=== PATIENT | female | born 1985 | race Caucasian/White ===

== ENCOUNTER 2017-03-09 12:47 | Day surgery (SDC) | payer OTHER ==
[2017-03-05 15:28] VITALS: BMI 36.1
[~2017-03-09 12:47] MED LIST: DEXAMETHASONE SOD PHOSPHATE 10 MG/ML 1 ML VIAL IV ONE; HYDROmorphone 1 MG/ML 1 ML SYRINGE IVP PRN; LACTATED RINGERS 1,000 ML IV SCH; MIDAZOLAM 2 MG/2 ML VIAL IV PRN; ONDANSETRON 4 MG/2 ML VIAL IVP ONE; Pre Op ABX Message 1 EACH MISC MISCELLANE ONE; SCOPOLAMINE 1.5MG/72HR PATCH TRANSDERM ONE
[2017-03-09 13:24] VITALS: TEMP 97.8
[2017-03-09] MEDS ORDERED: LIDOCAINE 1% 20 ML VIAL (10MG/ML) FOR IV START INTRADERMA ONE (13:25)
[2017-03-09] MEDS ORDERED: LIDOCAINE 2% INJ 20 MG/ML SQ ONE ×2 (13:40→13:51)
[2017-03-09] MEDS ORDERED: BUPIVACAINE (PF) 0.5% 30 ML VIAL SQ ONE ×2 (13:40→13:51)
[2017-03-09] MEDS ORDERED: LIDOCAINE 1% INJ 10MG/ML (20 ML MDV) ONE (13:45)
[2017-03-09] MEDS ORDERED: fentaNYL (PF) 50 MCG/ML 2 ML AMP ONE (13:45)
[2017-03-09] MEDS ORDERED: MIDAZOLAM 2 MG/2 ML VIAL ONE (13:45)
[2017-03-09] MEDS ORDERED: PROPOFOL 10 MG/ML 20 ML VIAL IV ONE (13:45)
[2017-03-09 14:25] VITALS: RESP 16
[2017-03-09 14:27] VITALS: BP 103/71; PULSE 78
--- NOTE | 2017-03-10 10:50 | OP ---
DATE OF SERVICE: 03/09/2017 SURGEON: CEDRIC VU DO BUSINESS SERVICES ADMINISTRATOR: PREOPERATIVE DIAGNOSIS: Left cubital tunnel syndrome. POSTOPERATIVE DIAGNOSIS: Left cubital tunnel syndrome. OPERATION: Cubital tunnel release. ANESTHESIA: ESTIMATED BLOOD LOSS: SPECIMENS REMOVED: COMPLICATIONS: OPERATIVE FINDINGS: DESCRIPTION OF PROCEDURE: The patient is taken to the operative suite where an anesthetic was administered by the department of anesthesia with good result. The arm was then prepped and draped in the usual manner. A longitudinal incision was made, somewhat posteriorly near the olecranon. Dissection was then taken through the skin and subcutaneous tissue with blunt dissection then performed to protect any posterior branches of the medial antebrachial cutaneous nerve of the arm. The ulnar nerve was then visualized in the retrocondylar groove and was traced in both the proximal and distal directions. Care was taken to ensure all potential sites of nerve entrapment were decompressed including the arcade of [place], the medial intermuscular septums, the retrocondylar groove, decubital tunnel and the flexor aponeurosis distally. Care was taken to avoid dissecting the ulnar nerve from its vascular supply. At the completion of the procedure, the elbow was placed in flexion and there is no sign of subluxation. The wound was then irrigated and the skin was closed with running 5-0 nylon suture. Marcaine was injected for long acting anesthetic. A soft bulky dressing was applied and the patient taken to the recovery room in satisfactory condition.
== END 2017-03-09 14:57 | disposition home or self-care (01) ==
LOC: OR 12:47
PROVIDERS: ATTEND Orthopaedic Surgery Hand Surgery
DX: G56.22 Lesion of ulnar nerve, left upper limb (principal); M79.7 Fibromyalgia; Z79.1 Long term (current) use of non-steroidal anti-inflammatories (NSAID); Z79.891 Long term (current) use of opiate analgesic; Z79.899 Other long term (current) drug therapy; Z88.1 Allergy status to other antibiotic agents; Z88.8 Allergy status to other drugs, medicaments and biological substances
CPT/HCPCS: 81025; 64718; J2001 ×2; J2250; J1100; J2405; J3010; J2704

== ENCOUNTER → 2017-03-16 | Outpatient (CLI) | payer OTHER ==
--- NOTE | 2017-03-16 22:50 | MR ---
EXAMINATION TYPE: MR lumbar spine wo con DATE OF EXAM: 03/16/2017 10:01 PM COMPARISON: 05/05/2014 HISTORY: 31-year-old female with low back pain, right lower extremity radiculopathy, prior surgery 20 12. TECHNIQUE: Multiplanar, multisequence images of the lumbar spine were acquired. The patient was in to o much pain to proceed with the contrast portion of the exam. FINDINGS: Vertebral body heights are preserved and alignment is maintained. There is progressive moderate to severe disc space narrowing at L5-S1 with disc bulge and mixed Modic type II and type III endplate change at this level. There is progressive moderate disc interspace narrowing at L4-L5 and additional early desiccation thr oughout the lumbar spine. Similar moderate disc height loss at L1-L2 and bulging disc though also wit h progressive disc desiccation. No suspicious bone marrow placement. Conus medullaris is normal. At T12-L1, no significant canal or foraminal stenosis. At L1-L2, diffuse disc bulge with mild ventral impression on the thecal sac but no significant canal or foraminal stenosis. At L2-L3, no significant canal or foraminal stenosis. At L3-L4, very mild facet degenerative change without significant canal or foraminal stenosis. At L4-L5, there is mild diffuse disc bulge with ligamentum flavum thickening and prominent dorsal epi dural fat and mild facet degenerative change. Disc bulge centrally in the right paracentral location has increased from prior. There is minimal inferior foraminal narrowing on both sides, increased from prior. No spinal canal stenosis. At L5-S1, there is either persistent or recurrent right paracentral disc extrusion with some superior migration of disc material. This likely impinges the traversing right S1 nerve root and likely abuts the traversing right S2 nerve root as well. There is continued mild right neuroforaminal stenosis wi th disc material probably abutting the exiting right L5 nerve root. Similar moderate left neuroforami nal stenosis without spinal canal stenosis. No prevertebral or paravertebral soft tissue abnormality. IMPRESSION: 1. Moderate to advanced chronic disc/endplate degenerative change at L5-S1 shows interval progression from 2013. Mild early degenerative disc disease has progressed at additional levels in the lumbar sp ine as well. Scattered mild facet arthropathy and ligamentum flavum thickening is relatively similar. 2. There is either persistent or recurrent right paracentral disc extrusion with some superior migrat ion of disc material at L5-S1. This abuts the exiting right L5 nerve root, impinges the traversing ri ght S1 nerve root, and abuts the traversing right S2 nerve root. Similar moderate left neural foramin al stenosis at this level. 3. Minimal bilateral inferior neuroforaminal narrowing at L4-L5 has increased. 4. No canal compromise. 5. Note that IV contrast was not administered as the patient was in too much pain to complete the exa m.
== END | disposition home or self-care (01) ==
LOC: RADMRIMAIN 21:22
PROVIDERS: ATTEND Neurological Surgery
DX: M51.36 Other intervertebral disc degeneration, lumbar region (principal); M46.96 Unspecified inflammatory spondylopathy, lumbar region; M51.27 Other intervertebral disc displacement, lumbosacral region; M48.07 Spinal stenosis, lumbosacral region; S33.30XA Dislocation of unspecified parts of lumbar spine and pelvis, initial encounter
CPT/HCPCS: 72148

== ENCOUNTER → 2017-06-15 | Outpatient (CLI) | payer OTHER ==
--- NOTE | 2017-06-15 14:22 | XR ---
EXAMINATION TYPE: XR chest 2V DATE OF EXAM: 06/15/2017 COMPARISON: NONE HISTORY: Chest pain TECHNIQUE: Frontal and lateral views of the chest are obtained. FINDINGS: There is no focal air space opacity. No evidence for pneumothorax. No pleural effusion. The cardiac silhouette size is within normal limits. The osseous structures are grossly intact. Scoliotic curvature seen convex to the right. IMPRESSION: 1. No acute cardiopulmonary process.
== END ==
LOC: RADXRMAIN 14:01
PROVIDERS: ATTEND Family Medicine
DX: R06.02 Shortness of breath (principal)
CPT/HCPCS: 71020

== ENCOUNTER → 2017-10-21 | Outpatient (CLI) | payer OTHER ==
--- NOTE | 2017-10-21 23:14 | MR ---
EXAMINATION TYPE: MR brain wo/w con DATE OF EXAM: 10/21/2017 COMPARISON: NONE HISTORY: Body tremors, difficulty talking, headaches TECHNIQUE: Multiplanar, multisequence images of the brain and brainstem is performed without and with IV contras t, utilizing 10 mL intravenous Gadavist . FINDINGS: The ventricles have normal size. There is no mass effect nor midline shift. There is no sig n of intracranial hemorrhage. Lovelace-white matter structures have fairly normal signal pattern. There i s no evidence of cerebral edema. Brainstem appears normal. Corpus callosum is normal. Sella turcica a ppears normal. There is normal contrast opacification of the venous sinuses. There is no pathologic e nhancement. Pituitary stalk appears normal. Corpus callosum appears normal. IMPRESSION: Normal MR scan of the brain.
== END | disposition home or self-care (01) ==
LOC: RADMRIMAIN 16:55
PROVIDERS: ATTEND Family Medicine
DX: R47.9 Unspecified speech disturbances (principal)
CPT/HCPCS: 70553; A9581

== ENCOUNTER → 2018-03-18 | Outpatient (CLI) | payer OTHER ==
--- NOTE | 2018-03-19 06:52 | XR ---
EXAMINATION TYPE: XR chest 2V DATE OF EXAM: 03/18/2018 COMPARISON: Chest x-ray from June 15, 2017. HISTORY: Presurgical clearance. TECHNIQUE: Frontal and lateral views of the chest are obtained. FINDINGS: There is no focal air space opacity, pleural effusion, or pneumothorax seen. The cardiac silhouette size is within normal limits. Slight scoliotic curvature is redemonstrated. Cholecystectom y clips are noted on lateral view. IMPRESSION: No acute cardiopulmonary process. No significant change from prior.
== END | disposition home or self-care (01) ==
LOC: RADXRMAIN 17:08
PROVIDERS: ATTEND Neurological Surgery
DX: M50.00 Cervical disc disorder with myelopathy, unspecified cervical region (principal)
CPT/HCPCS: 71046

== ENCOUNTER 2018-07-03 11:43 | Emergency (ER) | payer OTHER ==
--- NOTE | 2018-07-03 12:22 | ED ---
General Adult HPI - General Chief complaint: Psychiatric Symptoms Stated complaint: Chest pain Time Seen by Provider: 07/03/18 11:45 Source: patient, RN notes reviewed, old records reviewed Mode of arrival: EMS Limitations: no limitations - History of Present Illness Initial comments: 33-year-old female presenting for evaluation of depression, anxiety, and suicidal ideation. Patient states that her recently lost his job, she has been dealing with a [employer] with shot off notices, she has a daughter who is having some psychiatric issues and she herself is been dealing with multiple chronic pain issues. She denies suicide attempt. She does have suicidal ideation. She is tearful during exam. She did complain to EMS of some upper left-sided chest pain which she attributed to her anxiety. She's had some nausea and restlessness. She states she has not slept in the past several days secondary to her anxiety. - Related Data Home Medications Medication Instructions Recorded Confirmed Pregabalin [Lyrica] 200 mg PO BID 03/29/15 07/03/18 Albuterol Inhaler [Ventolin Hfa 2 puff INHALATION RT-QID PRN 07/03/18 07/03/18 Inhaler] Ibuprofen [Motrin Ib] 200 - 400 mg PO Q6H PRN 07/03/18 07/03/18 Mometasone/Formoterol [Dulera 200 2 puff INHALATION RT-BID 07/03/18 07/03/18 Mcg/5 Mcg Inhaler] Previous Rx's Medication Instructions Recorded traMADol HCL [Ultram] 50 mg PO Q12HR PRN 3 Days #12 tab 07/03/18 Allergies Allergy/AdvReac Type Severity Reaction Status Date / Time cephalexin monohydrate Allergy Swelling Verified 07/03/18 13:26 [From Keflex] pramipexole di-HCl AdvReac Nausea & Verified 07/03/18 13:26 [From Mirapex] Vomiting Review of Systems ROS Statement: Those systems with pertinent positive or pertinent negative responses have been documented in the HPI. ROS Other: All systems not noted in ROS Statement are negative. Past Medical History Past Medical History: Osteoarthritis (OA) Additional Past Medical History / Comment(s): CHRONIC BACK PAIN, ABDOMINAL PAIN , CONSTIPATION, BLOOD IN STOOL History of Any Multi-Drug Resistant Organisms: None Reported Past Surgical History: Back Surgery, Cholecystectomy, Orthopedic Surgery Additional Past Surgical History / Comment(s): IMTIAZ KNEE ARTHROSCOPY, HEMATOMA REMOVED RT FOOT,NOVASURE ABLATION Past Anesthesia/Blood Transfusion Reactions: No Reported Reaction Past Psychological History: Depression Smoking Status: Former smoker Past Alcohol Use History: None Reported Past Drug Use History: None Reported - Past Family History Mother Family Medical History: Deep Vein Thrombosis (DVT), Pulmonary Embolus General Exam Limitations: no limitations General appearance: alert, anxious Head exam: Present: atraumatic, normocephalic Eye exam: Present: normal appearance, PERRL, EOMI ENT exam: Present: normal exam Neck exam: Present: normal inspection. Absent: tenderness, meningismus Respiratory exam: Present: normal lung sounds bilaterally. Absent: respiratory distress, wheezes Cardiovascular Exam: Present: regular rate, normal rhythm GI/Abdominal exam: Present: soft. Absent: distended, tenderness, guarding Extremities exam: Present: normal inspection Back exam: Present: normal inspection. Absent: full ROM, tenderness Neurological exam: Present: alert, oriented X3. Absent: motor sensory deficit Psychiatric exam: Present: depressed, anxious, suicidal ideation Skin exam: Present: warm, dry, intact. Absent: cyanosis, diaphoretic Course Vital Signs 07/03/18 07/03/18 11:47 13:44 Temperature 98.1 F 98.3 F Pulse Rate 75 83 Respiratory 18 20 Rate Blood Pressure 126/76 132/67 O2 Sat by Pulse 98 99 Oximetry - Reevaluation(s) Reevaluation #1: 07/03/18 14:32 Patient is medically cleared, awaiting EPS evaluation. EKG Findings - EKG Comments: EKG Findings:: EKG: Normal sinus rhythm, rate of 79, IL interval 144, QRS duration 84, QTC 419, no signs of acute ischemia. Medical Decision Making - Medical Decision Making Patient is evaluated by EPS, she is cleared for outpatient follow-up. She is provided with outpatient follow-up as well. She is no longer suicidal and reevaluation. She is in the room with her and mother. All parties are comfortable with discharge. Patient will also be given a refill for her tramadol which she takes for chronic pain. - Lab Data Lab Results 07/03/18 07/03/18 Range/Units 13:30 13:30 Urine Color Yellow Urine Appearance Clear (Clear) Urine pH 6.0 (5.0-8.0) Ur Specific Mc[place]osh 1.010 (1.001-1.035) Urine Protein Negative (Negative) Urine Glucose (UA) Negative (Negative) Urine Ketones Negative (Negative) Urine Blood Negative (Negative) Urine Nitrite Negative (Negative) Urine Bilirubin Negative (Negative) Urine Urobilinogen <2.0 (<2.0) mg/dL Ur Leukocyte Esterase Trace H (Negative) Urine RBC 1 (0-5) /hpf Urine WBC 2 (0-5) /hpf Ur Squamous Epith Cells 4 (0-4) /hpf Urine Bacteria Rare H (None) /hpf Urine HCG, Qual Not Detected (Not Detectd) Urine Opiates Screen Detected H (NotDetected) Ur Oxycodone Screen Not Detected (NotDetected) Urine Methadone Screen Not Detected (NotDetected) Ur Propoxyphene Screen Not Detected (NotDetected) Ur Barbiturates Screen Not Detected (NotDetected) U Tricyclic Antidepress Not Detected (NotDetected) Ur Phencyclidine Scrn Not Detected (NotDetected) Ur Amphetamines Screen Not Detected (NotDetected) U Methamphetamines Scrn Not Detected (NotDetected) U Benzodiazepines Scrn Detected H (NotDetected) Urine Cocaine Screen Not Detected (NotDetected) U Marijuana (THC) Screen Not Detected (NotDetected) Disposition Clinical Impression: Depression Disposition: HOME SELF-CARE Condition: Fair Instructions: Depression (ED) Prescriptions: traMADol HCL [Ultram] 50 mg PO Q12HR PRN 3 Days #12 tab PRN Reason: Pain Is patient prescribed a controlled substance at d/c from ED?: No Referrals: Maciej Cadena DO [Primary Care Provider] - 1-2 days Time of Disposition: 17:00
[2018-07-03] MEDS ORDERED: ACETAMINOPHEN TAB 500 MG TAB PO STA (13:42)
[2018-07-03 13:45] VITALS: RESP 20; TEMP 98.3
[2018-07-03 13:56] LABS: Appearance,Urine Clear (Clear); Bacteria,Urine Rare /hpf; Bilirubin,Urine Negative (Negative); Blood,Urine Negative (Negative); Color,Urine Yellow; Glucose,Urine (UA) Negative (Negative); Ketones,Urine Negative (Negative); Leukocyte Esterase,Urine Trace (Negative); Nitrite,Urine Negative (Negative); Protein,Urine Negative (Negative); RBC,Urine 1 /hpf (0-5); Squamous Epithelial Cell,Urine 4 /hpf (0-4); Urobilinogen,Urine <2.0 mg/dL (<2.0); WBC,Urine 2 /hpf (0-5)
[2018-07-03 14:04] LABS: Cocaine Screen,Urine Not Detected (NotDetected); Phencyclidine Screen,Urine Not Detected (NotDetected); Urn Cannabinoid Scrn Not Detected (NotDetected)
[2018-07-03 14:05] LABS: Amphetamine Screen,Urine Not Detected (NotDetected); Barbiturate Screen,Urine Not Detected (NotDetected); Benzodiazepines Screen,Urine Detected (NotDetected); Methadone Screen, Urine Not Detected (NotDetected); Opiate Screen,Urine Detected (NotDetected); Oxycodone Screen, Urine Not Detected (NotDetected); Tricyclic Antidepressant,Urine Not Detected (NotDetected)
--- NOTE | 2018-07-03 14:10 | XR ---
EXAMINATION TYPE: XR chest 2V DATE OF EXAM: 07/03/2018 COMPARISON: 03/18/2018 INDICATION: Pain TECHNIQUE: Frontal and lateral views of the chest are obtained. FINDINGS: The heart size is normal. The pulmonary vasculature is normal. The lungs are clear. IMPRESSION: 1. No acute pulmonary process.
[2018-07-03 17:20] VITALS: BP 123/68; PULSE 77
== END 2018-07-03 17:10 | disposition home or self-care (01) ==
LOC: EC 11:43
DX: F32.9 Major depressive disorder, single episode, unspecified (principal); R07.9 Chest pain, unspecified; F41.9 Anxiety disorder, unspecified; G89.29 Other chronic pain; Z87.891 Personal history of nicotine dependence; Z79.51 Long term (current) use of inhaled steroids; Z79.899 Other long term (current) drug therapy; Z88.1 Allergy status to other antibiotic agents; Z88.8 Allergy status to other drugs, medicaments and biological substances
CPT/HCPCS: 71046; 80306; 81001; 81025; 82075; 93005; 99285

== ENCOUNTER 2018-11-25 20:33 | Emergency (ER) | payer OTHER ==
[2018-11-25 20:58] VITALS: BP 134/82; TEMP 98.3
[2018-11-25] MEDS ORDERED: traMADol 50 MG TAB PO STA (22:02)
[2018-11-25] MEDS ORDERED: PREGABALIN 100 MG CAP PO ONE (22:15)
--- NOTE | 2018-11-25 22:56 | ED ---
Anxiety HPI - General Chief Complaint: Anxiety Stated Complaint: Anxiety Source: patient Mode of arrival: ambulatory - History of Present Illness Initial Comments: 33-year-old female presenting today for chief complaint of withdrawal. 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 She states she then began to drawing expressing anxiety, insomnia, diarrhea, abdominal cramping , lacrimation. Patient states the symptoms she is experiencing today include those mentioned above and identical to the one she expresses every month at the end prescription. Patient takes 100 mg of tramadol 4 times a day, as well as Lyrica 200 mg daily. Patient denies any changes in symptoms. Remainder of ROS negative, patient denies any recent fever, chills, shortness of breath, chest pain, back pain, numbness or tingling, dysuria or hematuria, constipation or headaches or visual changes, or any other complaints. - Related Data Home Medications: Home Medications Medication Instructions Recorded Confirmed Pregabalin [Lyrica] 200 mg PO BID 03/29/15 11/25/18 Albuterol Inhaler [Ventolin Hfa 2 puff INHALATION RT-QID PRN 07/03/18 11/25/18 Inhaler] Mometasone/Formoterol [Dulera 200 2 puff INHALATION RT-BID PRN 07/03/18 11/25/18 Mcg/5 Mcg Inhaler] Previous Rx's Medication Instructions Recorded traMADol HCL [Ultram] 50 mg PO Q12HR PRN 3 Days #12 tab 07/03/18 Allergies/Adverse Reactions: Allergies Allergy/AdvReac Type Severity Reaction Status Date / Time cephalexin monohydrate Allergy Swelling Verified 11/25/18 21:20 [From Keflex] pramipexole di-HCl AdvReac Nausea & Verified 11/25/18 21:20 [From Mirapex] Vomiting Review of Systems ROS Statement: Those systems with pertinent positive or pertinent negative responses have been documented in the HPI. ROS Other: All systems not noted in ROS Statement are negative. Past Medical History Past Medical History: Osteoarthritis (OA) Additional Past Medical History / Comment(s): CHRONIC BACK PAIN, ABDOMINAL PAIN , CONSTIPATION, BLOOD IN STOOL History of Any Multi-Drug Resistant Organisms: None Reported Past Surgical History: Back Surgery, Cholecystectomy, Orthopedic Surgery Additional Past Surgical History / Comment(s): IMTIAZ KNEE ARTHROSCOPY, HEMATOMA REMOVED RT FOOT,NOVASURE ABLATION Past Anesthesia/Blood Transfusion Reactions: No Reported Reaction Past Psychological History: Anxiety, Depression Smoking Status: Former smoker Past Alcohol Use History: None Reported Past Drug Use History: None Reported - Past Family History Mother Family Medical History: Deep Vein Thrombosis (DVT), Pulmonary Embolus General Exam - General Exam Comments Initial Comments: General: The patient is awake and alert, in no distress, and does not appear acutely ill. Eye: Pupils are equal, round and reactive to light, extra-ocular movements are intact. No nystagmus. There is normal conjunctiva bilaterally. No signs of icterus. Ears, nose, mouth and throat: There are moist mucous membranes and no oral lesions. Neck: The neck is supple, there is no tenderness or JVD. Cardiovascular: There is a elevated rate and normal rhythm. No murmur, rub or gallop is appreciated. Respiratory: Lungs are clear to auscultation, respirations are non-labored, breath sounds are equal. No wheezes, stridor, rales, or rhonchi. Gastrointestinal: Soft, non-distended, non-tender abdomen without masses or organomegaly noted. There is no rebound or guarding present. No CVA tenderness. Bowel sounds are unremarkable. Musculoskeletal: Normal ROM, no tenderness. Strength 5/5. Sensation intact. Radial pulses equal bilaterally 2+. Neurological: A&O x 3. CN II-XII intact, There are no obvious motor or sensory deficits. Coordination appears grossly intact. Speech is normal. Skin: Skin is warm and dry and no rashes or lesions are noted. Psychiatric: Cooperative, appropriate mood & affect, normal judgment. Limitations: no limitations Course Vital Signs 11/25/18 11/26/18 20:54 00:29 Temperature 98.3 F Pulse Rate 119 H 68 Respiratory 20 16 Rate Blood Pressure 134/82 O2 Sat by Pulse 97 Oximetry Medical Decision Making - Medical Decision Making Pt symptoms consistent with opioid withdrawal. Maps reviewed. Pt given 1 dose of each RX in addition to low dose of methadone for long acting effects. Pt has a scheduled appointment for admission to [facility] next Thursday. Pt educated on opioid addiction. Pt refuses further educational information or outpatient therapy options given she states she will go to [facility] next thursday. EKG no acute findings. At this time I do feel pt is stable for discharge with primary care f/u in next 1-2 days. Discussed case with Dr. Holt who agreed with impression and plan. Patient has ride home, patient monitored for 30 minutes after menstruation methadone. - EKG Data EKG Comments: A 12-lead EKG was performed and shows the following: Rate is 83bpm, and rhythm is normal sinus with sinus arrhythmia. There are normal QRS complexes and normal R-wave progression. ST segments have no elevation or depression, and [place] segments appear normal. Disposition Clinical Impression: Opiate abuse, continuous, Opiate withdrawal Disposition: HOME SELF-CARE Instructions: Opioid Withdrawal (ED) Additional Instructions: Please use medication as discussed. Please follow-up with family doctor in the next 2 days, and for further medication refills. Please return to emergency room if the symptoms increase or worsen or for any other concerns. Is patient prescribed a controlled substance at d/c from ED?: No Referrals: [facility] [Primary Care Provider] - 1-2 days Time of Disposition: 22:56
[2018-11-25] MEDS ORDERED: METHADONE 5 MG TAB PO ONE (23:00)
[2018-11-26 00:31] VITALS: PULSE 68; RESP 16
== END 2018-11-26 00:25 | disposition home or self-care (01) ==
LOC: EC 20:33
DX: F11.23 Opioid dependence with withdrawal (principal); T40.2X5A Adverse effect of other opioids, initial encounter; I49.8 Other specified cardiac arrhythmias; G89.29 Other chronic pain; Z87.891 Personal history of nicotine dependence; Z88.1 Allergy status to other antibiotic agents; Z88.8 Allergy status to other drugs, medicaments and biological substances; Z79.899 Other long term (current) drug therapy
CPT/HCPCS: 93005; 99283; S0109

== ENCOUNTER 2019-04-10 21:04 | Inpatient (IN) | payer MEDICAID, OTHER ==
[2019-04-10 21:23] LABS: Glucose,Whole Blood 136 mg/dL (75-99)
[2019-04-10 21:31] LABS: Basophils % (A) 0 %; Eosinophils # (A) 0.2 k/uL (0-0.7); Eosinophils % (A) 2 %; HCT 47.4 % (34.0-46.0); HGB 15.1 gm/dL (11.4-16.0); Lymphocytes # (A) 3.2 k/uL (1.0-4.8); Lymphocytes % (A) 28 %; MCHC 31.9 g/dL (31.0-37.0); MCV 91.1 fL (80.0-100.0); Mean Platelet Volume 6.6; Monocytes # (A) 0.5 k/uL (0-1.0); Monocytes % (A) 4 %; Neutrophils # (A) 7.2 k/uL (1.3-7.7); Neutrophils % (A) 64 %; Platelet Count 408 k/uL (150-450); RDW 15.1 % (11.5-15.5); WBC 11.3 k/uL (3.8-10.6)
[2019-04-10 21:33] LABS: Amorphous Sediment,Urine Rare /hpf; Appearance,Urine Turbid (Clear); Bacteria,Urine Moderate /hpf; Bilirubin,Urine Negative (Negative); Blood,Urine Trace (Negative); Color,Urine Yellow; Glucose,Urine (UA) Negative (Negative); Ketones,Urine Negative (Negative); Leukocyte Esterase,Urine Moderate (Negative); Mucus,Urine Many /hpf; Nitrite,Urine Negative (Negative); Protein,Urine 2+ (Negative); RBC,Urine 2 /hpf (0-5); Specific Gravity,Urine 1.026 (1.001-1.035); Squamous Epithelial Cell,Urine 59 /hpf (0-4); Urobilinogen,Urine <2.0 mg/dL (<2.0); WBC,Urine 10 /hpf (0-5)
[2019-04-10 21:40] LABS: ALT 17 U/L (9-52); AST 14 U/L (14-36); Acetaminophen <10.0 ug/mL; Albumin 3.5 g/dL (3.5-5.0); Alcohol <10 mg/dL; Alkaline Phosphatase 57 U/L (38-126); Anion Gap 8 mmol/L; Blood Urea Nitrogen 4 mg/dL (7-17); Carbon Dioxide 22 mmol/L (22-30); Chloride 107 mmol/L (98-107); Creatine Kinase 23 U/L (30-135); Glucose 133 mg/dL (74-99); Potassium 4.3 mmol/L (3.5-5.1); Salicylate <1.0 mg/dL; Sodium 137 mmol/L (137-145); Total Bilirubin 0.3 mg/dL (0.2-1.3); Total Protein 5.9 g/dL (6.3-8.2)
[2019-04-10 21:43] LABS: Amphetamine Screen,Urine Not Detected (NotDetected); Barbiturate Screen,Urine Not Detected (NotDetected); Benzodiazepines Screen,Urine Not Detected (NotDetected); Cocaine Screen,Urine Not Detected (NotDetected); Methadone Screen, Urine Not Detected (NotDetected); Opiate Screen,Urine Not Detected (NotDetected); Oxycodone Screen, Urine Not Detected (NotDetected); Phencyclidine Screen,Urine Not Detected (NotDetected); Tricyclic Antidepressant,Urine Not Detected (NotDetected); Urn Cannabinoid Scrn Not Detected (NotDetected)
[2019-04-10] MEDS ORDERED: SODIUM CHLORIDE 0.9% 1,000 ML IV ONE (22:42)
--- NOTE | 2019-04-11 01:55 | ED ---
Overdose HPI - General Chief Complaint: Overdose Stated Complaint: Overdose Time Seen by Provider: 04/10/19 21:10 Source: patient, family, EMS Mode of arrival: EMS Limitations: altered mental status - History of Present Illness Initial Comments: Patient is a 34-year-old female who presents to the emergency department with reported overdose. EMS does provide the history. The patient is able to supplement the history. Her mother also presents to bedside. The patient reports long-standing history of chronic bilateral leg pain. She is on Ultram and Lyrica at home. States the pain has been intractable recently. States that she took "a handful" of clonidine and Ambien which was prescribed to her and daughter. She took these medications because she "wanted to go to sleep." When questioning the patient if she wanted to wake up again she states that she did not. Does admit that it was a suicide attempt. States that she cannot cope with the chronic pain any longer. Denies taking additional doses of her prescribed medications. Denies using any illegal drugs. Denies any homicidal ideations or hallucinations. Mother reports the patient called her approximately one month ago complaining about the pain and told her that she was going to take a handful of pills. Mother states that she talked her out of taking these medications however the patient never sought care. Today she was found unresponsive at home by her and young children. They called EMS who brought the patient to the emergency department. Upon arrival the patient is sleepy however oriented and able to provide a history. She was never found to be hypoxic. No other alleviating, preciptiating or modifying factors - Related Data Home Medications Medication Instructions Recorded Confirmed Pregabalin [Lyrica] 200 mg PO BID 03/29/15 04/10/19 Albuterol Inhaler [Ventolin Hfa 2 puff INHALATION RT-QID PRN 07/03/18 04/10/19 Inhaler] Mometasone/Formoterol [Dulera 200 2 puff INHALATION RT-BID PRN 07/03/18 04/10/19 Mcg/5 Mcg Inhaler] Previous Rx's Medication Instructions Recorded traMADol HCL [Ultram] 50 mg PO Q12HR PRN 3 Days #12 tab 07/03/18 Allergies Allergy/AdvReac Type Severity Reaction Status Date / Time cephalexin monohydrate Allergy Swelling Verified 04/10/19 21:32 [From Keflex] pramipexole di-HCl AdvReac Nausea & Verified 04/10/19 21:32 [From Mirapex] Vomiting Review of Systems ROS Statement: Those systems with pertinent positive or pertinent negative responses have been documented in the HPI. ROS Other: All systems not noted in ROS Statement are negative. Past Medical History Past Medical History: Osteoarthritis (OA) Additional Past Medical History / Comment(s): CHRONIC BACK PAIN, ABDOMINAL PAIN, CONSTIPATION, BLOOD IN STOOL History of Any Multi-Drug Resistant Organisms: None Reported Past Surgical History: Back Surgery, Cholecystectomy, Orthopedic Surgery Additional Past Surgical History / Comment(s): IMTIAZ KNEE ARTHROSCOPY, HEMATOMA REMOVED RT FOOT,NOVASURE ABLATION Past Anesthesia/Blood Transfusion Reactions: No Reported Reaction Past Psychological History: Anxiety, Depression Smoking Status: Current every day smoker Past Alcohol Use History: Occasional Past Drug Use History: None Reported - Past Family History Mother Family Medical History: Deep Vein Thrombosis (DVT), Pulmonary Embolus General Exam Limitations: altered mental status General appearance: in no apparent distress, other (sleepy with slurred speech) Head exam: Present: atraumatic, normocephalic, normal inspection Eye exam: Present: normal appearance, PERRL, EOMI. Absent: scleral icterus, conjunctival injection, periorbital swelling ENT exam: Present: normal exam, mucous membranes moist Neck exam: Present: normal inspection. Absent: tenderness, meningismus, lymphadenopathy Respiratory exam: Present: normal lung sounds bilaterally. Absent: respiratory distress, wheezes, rales, rhonchi, stridor Cardiovascular Exam: Present: regular rate, normal rhythm, normal heart sounds. Absent: systolic murmur, diastolic murmur, rubs, gallop, clicks GI/Abdominal exam: Present: soft, normal bowel sounds. Absent: distended, tenderness, guarding, rebound, rigid Extremities exam: Present: normal inspection, full ROM, normal capillary refill. Absent: tenderness, pedal edema, joint swelling, calf tenderness Back exam: Present: normal inspection Neurological exam: Present: alert, oriented X3, CN II-XII intact Psychiatric exam: Present: depressed, suicidal ideation Skin exam: Present: warm, dry, intact, normal color. Absent: rash Course Vital Signs 04/10/19 04/10/19 04/10/19 21:06 21:13 22:00 Temperature 98.2 F Pulse Rate 54 L 57 L 51 L Respiratory 19 24 18 Rate Blood Pressure 150/88 150/88 150/88 O2 Sat by Pulse 96 94 L 98 Oximetry 04/10/19 04/10/19 04/10/19 22:30 23:00 23:30 Temperature Pulse Rate 49 L 50 L 56 L Respiratory 19 20 20 Rate Blood Pressure 137/81 141/82 O2 Sat by Pulse 95 100 99 Oximetry 04/11/19 04/11/19 04/11/19 00:00 00:19 01:00 Temperature Pulse Rate 80 65 Respiratory 18 Rate Blood Pressure 138/83 150/96 149/102 O2 Sat by Pulse 98 97 97 Oximetry Medical Decision Making - Medical Decision Making On arrival the patient is placed into room 1. She is placed on continuous pulse ox and cardiac monitoring. We did obtain IV access. The patient's vitals were stable. Lab studies were conducted. We did contact poison control who recommended supportive care. A 12-lead EKG was performed on the patient. The patient is monitored within the emergency department for approximately 3 hours. She does become alert and oriented. She is no longer sedated with slurred speech. She is requesting pain medications however I did not supply the patient with any as she has already taken an excess of sedating medication. I did recommend evaluation by EPS. I did recommend that the patient have inpatient psychiatric treatment due to her presentation after an attempted suicide. EPS evaluated the patient and agreed to hospital admission. The patient is awaiting transport to the floor - Differential Diagnosis Suicidal ideations, acute depression, chronic pain, intentional overdose - Lab Data Result diagrams: 04/10/19 21:18 04/10/19 21:18 Lab Results 04/10/19 04/10/19 04/10/19 Range/Units 21:18 21:18 21:18 WBC 11.3 H (3.8-10.6) k/uL RBC 5.20 (3.80-5.40) m/uL Hgb 15.1 (11.4-16.0) gm/dL Hct 47.4 H (34.0-46.0) % MCV 91.1 (80.0-100.0) fL MCH 29.0 (25.0-35.0) pg MCHC 31.9 (31.0-37.0) g/dL RDW 15.1 (11.5-15.5) % Plt Count 408 (150-450) k/uL Neutrophils % 64 % Lymphocytes % 28 % Monocytes % 4 % Eosinophils % 2 % Basophils % 0 % Neutrophils # 7.2 (1.3-7.7) k/uL Lymphocytes # 3.2 (1.0-4.8) k/uL Monocytes # 0.5 (0-1.0) k/uL Eosinophils # 0.2 (0-0.7) k/uL Basophils # 0.0 (0-0.2) k/uL Sodium 137 (137-145) mmol/L Potassium 4.3 (3.5-5.1) mmol/L Chloride 107 (98-107) mmol/L Carbon Dioxide 22 (22-30) mmol/L Anion Gap 8 mmol/L BUN 4 L (7-17) mg/dL Creatinine 0.76 (0.52-1.04) mg/dL Est GFR (CKD-EPI)AfAm >90 (>60 ml/min/1.73 sqM) Est GFR (CKD-EPI)NonAf >90 (>60 ml/min/1.73 sqM) Glucose 133 H (74-99) mg/dL POC Glucose (mg/dL) (75-99) mg/dL POC Glu Paper Counter ID Calcium 9.0 (8.4-10.2) mg/dL Total Bilirubin 0.3 (0.2-1.3) mg/dL AST 14 (14-36) U/L ALT 17 (9-52) U/L Alkaline Phosphatase 57 (38-126) U/L Creatine Kinase 23 L (30-135) U/L Total Protein 5.9 L (6.3-8.2) g/dL Albumin 3.5 (3.5-5.0) g/dL Urine Color Yellow Urine Appearance Turbid H (Clear) Urine pH 7.0 (5.0-8.0) Ur Specific [place] 1.026 (1.001-1.035) Urine Protein 2+ H (Negative) Urine Glucose (UA) Negative (Negative) Urine Ketones Negative (Negative) Urine Blood Trace H (Negative) Urine Nitrite Negative (Negative) Urine Bilirubin Negative (Negative) Urine Urobilinogen <2.0 (<2.0) mg/dL Ur Leukocyte Esterase Moderate H (Negative) Urine RBC 2 (0-5) /hpf Urine WBC 10 H (0-5) /hpf Ur Squamous Epith Cells 59 H (0-4) /hpf Amorphous Sediment Rare H (None) /hpf Urine Bacteria Moderate H (None) /hpf Urine Mucus Many H (None) /hpf Urine HCG, Qual (Not Detectd) Salicylates <1.0 mg/dL Urine Opiates Screen Not Detected (NotDetected) Ur Oxycodone Screen Not Detected (NotDetected) Urine Methadone Screen Not Detected (NotDetected) Ur Propoxyphene Screen Not Detected (NotDetected) Acetaminophen <10.0 ug/mL Ur Barbiturates Screen Not Detected (NotDetected) U Tricyclic Antidepress Not Detected (NotDetected) Ur Phencyclidine Scrn Not Detected (NotDetected) Ur Amphetamines Screen Not Detected (NotDetected) U Methamphetamines Scrn Not Detected (NotDetected) U Benzodiazepines Scrn Not Detected (NotDetected) Urine Cocaine Screen Not Detected (NotDetected) U Marijuana (THC) Screen Not Detected (NotDetected) Serum Alcohol <10 mg/dL 04/10/19 04/10/19 Range/Units 21:18 21:19 WBC (3.8-10.6) k/uL RBC (3.80-5.40) m/uL Hgb (11.4-16.0) gm/dL Hct (34.0-46.0) % MCV (80.0-100.0) fL MCH (25.0-35.0) pg MCHC (31.0-37.0) g/dL RDW (11.5-15.5) % Plt Count (150-450) k/uL Neutrophils % % Lymphocytes % % Monocytes % % Eosinophils % % Basophils % % Neutrophils # (1.3-7.7) k/uL Lymphocytes # (1.0-4.8) k/uL Monocytes # (0-1.0) k/uL Eosinophils # (0-0.7) k/uL Basophils # (0-0.2) k/uL Sodium (137-145) mmol/L Potassium (3.5-5.1) mmol/L Chloride (98-107) mmol/L Carbon Dioxide (22-30) mmol/L Anion Gap mmol/L BUN (7-17) mg/dL Creatinine (0.52-1.04) mg/dL Est GFR (CKD-EPI)AfAm (>60 ml/min/1.73 sqM) Est GFR (CKD-EPI)NonAf (>60 ml/min/1.73 sqM) Glucose (74-99) mg/dL POC Glucose (mg/dL) 136 H (75-99) mg/dL POC Glu Paper Counter ID Sunil Avila Calcium (8.4-10.2) mg/dL Total Bilirubin (0.2-1.3) mg/dL AST (14-36) U/L ALT (9-52) U/L Alkaline Phosphatase (38-126) U/L Creatine Kinase (30-135) U/L Total Protein (6.3-8.2) g/dL Albumin (3.5-5.0) g/dL Urine Color Urine Appearance (Clear) Urine pH (5.0-8.0) Ur Specific [place] (1.001-1.035) Urine Protein (Negative) Urine Glucose (UA) (Negative) Urine Ketones (Negative) Urine Blood (Negative) Urine Nitrite (Negative) Urine Bilirubin (Negative) Urine Urobilinogen (<2.0) mg/dL Ur Leukocyte Esterase (Negative) Urine RBC (0-5) /hpf Urine WBC (0-5) /hpf Ur Squamous Epith Cells (0-4) /hpf Amorphous Sediment (None) /hpf Urine Bacteria (None) /hpf Urine Mucus (None) /hpf Urine HCG, Qual Not Detected (Not Detectd) Salicylates mg/dL Urine Opiates Screen (NotDetected) Ur Oxycodone Screen (NotDetected) Urine Methadone Screen (NotDetected) Ur Propoxyphene Screen (NotDetected) Acetaminophen ug/mL Ur Barbiturates Screen (NotDetected) U Tricyclic Antidepress (NotDetected) Ur Phencyclidine Scrn (NotDetected) Ur Amphetamines Screen (NotDetected) U Methamphetamines Scrn (NotDetected) U Benzodiazepines Scrn (NotDetected) Urine Cocaine Screen (NotDetected) U Marijuana (THC) Screen (NotDetected) Serum Alcohol mg/dL - EKG Data -: EKG Interpreted by Me EKG Comments: 12-lead EKG demonstrates a normal sinus rhythm with a ventricular rate of 62. OR interval 156. QRS 84. QTC of 420. No acute ST segment elevations or depressions concerning for scheming changes. No signs of [id number] or Brugada syndrome. Disposition Clinical Impression: Suicide attempt by multiple drug overdose Disposition: ADMITTED IP TO THIS HOSP Condition: Stable Is patient prescribed a controlled substance at d/c from ED?: No Decision to Admit Reason: Admit from EC Decision Date: 04/11/19 Decision Time: 01:57
[2019-04-11] MEDS ORDERED: ZIPRASIDONE 20 MG VIAL IM PRN (02:41)
[2019-04-11] MEDS ORDERED: MAGNESIUM HYDROXIDE 2,400 MG/10 ML CUP PO PRN (02:41)
[2019-04-11] MEDS ORDERED: MAG HYDROX/AL HYDROX/SIMETH 30 ML CUP PO PRN (02:41)
[2019-04-11] MEDS ORDERED: ACETAMINOPHEN TAB 325 MG TAB PO PRN (02:41)
[2019-04-11 04:30] VITALS: BMI 34.8
[2019-04-11] MEDS: NICOTINE 14MG/24HR PATCH TRANSDERM SCH (07:47)
--- NOTE | 2019-04-11 09:37 | P.HP ---
Psychiatric H&P - . History & Physical: Allergies Allergy/AdvReac Type Severity Reaction Status Date / Time cephalexin monohydrate Allergy Swelling Verified 04/11/19 03:17 [From Keflex] pramipexole di-HCl AdvReac Nausea & Verified 04/11/19 03:17 [From Mirapex] Vomiting Vital Signs Temp 97.3 F L 04/11/19 04:07 Pulse 65 04/11/19 04:07 Resp 16 04/11/19 04:07 BP 121/78 04/11/19 04:07 Pulse Ox 95 04/11/19 04:07 Intake & Output 04/10/19 04/11/19 04/11/19 18:59 06:59 18:59 Weight 103 kg Laboratory Last Values WBC 11.3 k/uL (3.8-10.6) H 04/10/19 21:18 RBC 5.20 m/uL (3.80-5.40) 04/10/19 21:18 Hgb 15.1 gm/dL (11.4-16.0) 04/10/19 21:18 Hct 47.4 % (34.0-46.0) H 04/10/19 21:18 MCV 91.1 fL (80.0-100.0) 04/10/19 21:18 MCH 29.0 pg (25.0-35.0) 04/10/19 21:18 MCHC 31.9 g/dL (31.0-37.0) 04/10/19 21:18 RDW 15.1 % (11.5-15.5) 04/10/19 21:18 Plt Count 408 k/uL (150-450) 04/10/19 21:18 Neutrophils % 64 % 04/10/19 21:18 Lymphocytes % 28 % 04/10/19 21:18 Monocytes % 4 % 04/10/19 21:18 Eosinophils % 2 % 04/10/19 21:18 Basophils % 0 % 04/10/19 21:18 Neutrophils # 7.2 k/uL (1.3-7.7) 04/10/19 21:18 Lymphocytes # 3.2 k/uL (1.0-4.8) 04/10/19 21:18 Monocytes # 0.5 k/uL (0-1.0) 04/10/19 21:18 Eosinophils # 0.2 k/uL (0-0.7) 04/10/19 21:18 Basophils # 0.0 k/uL (0-0.2) 04/10/19 21:18 Sodium 137 mmol/L (137-145) 04/10/19 21:18 Potassium 4.3 mmol/L (3.5-5.1) 04/10/19 21:18 Chloride 107 mmol/L (98-107) 04/10/19 21:18 Carbon Dioxide 22 mmol/L (22-30) 04/10/19 21:18 Anion Gap 8 mmol/L 04/10/19 21:18 BUN 4 mg/dL (7-17) L 04/10/19 21:18 Creatinine 0.76 mg/dL (0.52-1.04) 04/10/19 21:18 Est GFR (CKD-EPI)AfAm >90 (>60 ml/min/1.73 sqM) 04/10/19 21:18 Est GFR (CKD-EPI)NonAf >90 (>60 ml/min/1.73 sqM) 04/10/19 21:18 Glucose 133 mg/dL (74-99) H 04/10/19 21:18 POC Glucose (mg/dL) 136 mg/dL (75-99) H 04/10/19 21:19 POC Glu Fabrication Engineer Sunil Cotton 04/10/19 21:19 Calcium 9.0 mg/dL (8.4-10.2) 04/10/19 21:18 Total Bilirubin 0.3 mg/dL (0.2-1.3) 04/10/19 21:18 AST 14 U/L (14-36) 04/10/19 21:18 ALT 17 U/L (9-52) 04/10/19 21:18 Alkaline Phosphatase 57 U/L (38-126) 04/10/19 21:18 Creatine Kinase 23 U/L (30-135) L 04/10/19 21:18 Total Protein 5.9 g/dL (6.3-8.2) L 04/10/19 21:18 Albumin 3.5 g/dL (3.5-5.0) 04/10/19 21:18 Triglycerides 251 mg/dL (<150) H 04/10/19 21:18 Cholesterol 180 mg/dL (<200) 04/10/19 21:18 LDL Cholesterol, Calc 100 mg/dL (0-99) H 04/10/19 21:18 HDL Cholesterol 30 mg/dL (40-60) L 04/10/19 21:18 TSH 2.590 mIU/L (0.465-4.680) 04/10/19 21:18 Urine Color Yellow 04/10/19 21:18 Urine Appearance Turbid (Clear) H 04/10/19 21:18 Urine pH 7.0 (5.0-8.0) 04/10/19 21:18 Ur Specific [place] 1.026 (1.001-1.035) 04/10/19 21:18 Urine Protein 2+ (Negative) H 04/10/19 21:18 Urine Glucose (UA) Negative (Negative) 04/10/19 21:18 Urine Ketones Negative (Negative) 04/10/19 21:18 Urine Blood Trace (Negative) H 04/10/19 21:18 Urine Nitrite Negative (Negative) 04/10/19:18 Urine Bilirubin Negative (Negative) 04/10/19 21:18 Urine Urobilinogen <2.0 mg/dL (<2.0) 04/10/19 21:18 Ur Leukocyte Esterase Moderate (Negative) H 04/10/19 21:18 Urine RBC 2 /hpf (0-5) 04/10/19 21:18 Urine WBC 10 /hpf (0-5) H 04/10/19 21:18 Ur Squamous Epith Cells 59 /hpf (0-4) H 04/10/19 21:18 Amorphous Sediment Rare /hpf (None) H 04/10/19 21:18 Urine Bacteria Moderate /hpf (None) H 04/10/19 21:18 Urine Mucus Many /hpf (None) H 04/10/19 21:18 Urine HCG, Qual Not Detected (Not Detectd) 04/10/19 21:18 Salicylates <1.0 mg/dL 04/10/19 21:18 Urine Opiates Screen Not Detected (NotDetected) 04/10/19 21:18 Ur Oxycodone Screen Not Detected (NotDetected) 04/10/19 21:18 Urine Methadone Screen Not Detected (NotDetected) 04/10/19 21:18 Ur Propoxyphene Screen Not Detected (NotDetected) 04/10/19 21:18 Acetaminophen <10.0 ug/mL 04/10/19 21:18 Ur Barbiturates Screen Not Detected (NotDetected) 04/10/19 21:18 U Tricyclic Antidepress Not Detected (NotDetected) 04/10/19 21:18 Ur Phencyclidine Scrn Not Detected (NotDetected) 04/10/19 21:18 Ur Amphetamines Screen Not Detected (NotDetected) 04/10/19 21:18 U Methamphetamines Scrn Not Detected (NotDetected) 04/10/19 21:18 U Benzodiazepines Scrn Not Detected (NotDetected) 04/10/19 21:18 Urine Cocaine Screen Not Detected (NotDetected) 04/10/19 21:18 U Marijuana (THC) Screen Not Detected (NotDetected) 04/10/19 21:18 Serum Alcohol <10 mg/dL 04/10/19 21:18 04/11/19 09:29 IDENTIFYING DATA: This patient is a 34-year-old female who was admitted to the mental health unit after an overdose with Ambien and clonidine. HPI: The patient states that she has been struggling with pain affecting her feet and lower extremities ever since the age of 9. She states that she had been managed with Ultram but her physician no longer wanted to prescribe it to her. She has finished her prescription with Ultram and was fearful that the pain will resume as it was. She states yesterday at 1 PM she took a combination of Ambien and clonidine approximately 20 pills. The Ambien work 10 mg tablets and the clonidine was 0.1 mg tablet. She states she took all the pills at once and then went to sleep. When her came home from work he woke her and realized she was altered and got her to the hospital. She states she didn't intend to but recognizes that it wasn't unsafe choice and would admit that it was reckless. She states she hasn't been depressed lately. She endorses no crying spells she states appetite and energy and interest in activities have been stable. Sleep has been impaired. She reports panic attacks that occur once to twice a month that are classic in nature with chest pain shortness of breath dizziness diaphoresis and decreased concentration. She reports no thoughts of harming herself at this time she reports no thoughts of harming others. She endorses no auditory or visual hallucinations or any specific delusions. PAST PSYCHIATRIC HISTORY: This is her first inpatient psychiatric admission no prior suicide attempts she is not currently working with an outpatient clinician. She states she was on Wellbutrin in the past for smoking cessation. Over a year ago a primary care physician prescribed Prozac but the patient did not take the medication as she felt it was unnecessary. PMH: Chronic pain of her back and neck, fibromyalgia, knee arthritis, she believe she has tarsal tunnel syndrome ALLERGIES: Mirapex and Keflex MEDICATIONS: She was taking Ultram CHEMICAL DEPENDENCY HISTORY: She reports no use of alcohol marijuana or illicit drugs. She is never been placed in residential treatment for chemical dependency reasons. FAMILY PSYCHIATRIC HISTORY: None reported, no suicides in the family FAMILY CHEMICAL DEPENDENCY HISTORY: None reported SOCIAL HISTORY: The patient is 34 years old she's been for 3 years she characterizes the marriage as good. She has 3 daughters H 10 13 and 18. Her 18-year-old lives with a grandfather. The patient is unemployed. She has applied to receive disability but has been denied twice. She has a high school education with some college credits, no service, she has 1 brother one sister. She is originally from the [facility]. She was raised by her mother as her parents when she was 1 years old and she states she practically does not know her father. No legal history no abuse history reported. MENTAL STATUS EXAM: The patient is an overweight female. She is dressed in hospital gowns. Hygiene grooming adequate. She is pleasant cooperative and readily participates in the interview. She indicates feelings of remorse and taking the overdose. She states she has no acute suicidal or homicidal ideation intent or plan at this time. She reports no auditory or visual hallucinations or any specific delusions. She demonstrates no objective evidence of psychosis. She demonstrates no tangential thinking loose associations or flight of ideas she demonstrates no evidence of hypomania or justine. Thought process is linear. She demonstrates no verbal or physical aggressiveness she demonstrates no involuntary repetitive movements. She is oriented to person place and date she is able to name the days of the week backwards. STRENGTHS/WEAKNESSES: Strengths: Housing, supportive marriage weaknesses: Ongoing complaint of pain INTELLECTUAL FUNCTIONING: Average IMPRESSIONS: [] 1. Depression unspecified, rule out major depressive disorder, panic attacks PLAN: The patient has been admitted to the mental health unit voluntarily. We have reviewed her presenting symptoms and treatment options. We decided to initiate Cymbalta 30 mg daily with a plan of titrating to 60 mg daily to address mood anxiety and pain symptoms. We discussed potential benefits and side effects of Cymbalta and her questions were answered. She will be seen by internal medicine for routine history and physical exam. The initial urinalysis appeared abnormal. She will be seen by social work for routine psychosocial assessment and begin discharge planning. We will monitor her for safety she is encouraged to participate in the milieu.
[2019-04-11] MEDS: DULoxetine HCL 30 MG CAPSULE.DR PO SCH (09:38)
[2019-04-11 13:13] LABS: Hemoglobin A1C 5.8 % (4.0-6.0)
[2019-04-11] MEDS ORDERED: ALBUTEROL NEBULIZED 2.5 MG/3 ML INHALATION PRN (17:00)
--- NOTE | 2019-04-11 17:10 | P.HPMEDMHU ---
History of Present Illness H&P Date: 04/11/19 Chief Complaint: overdose Patient is a 34-year-old female with a past medical history of asthma and COPD, fibromyalgia with chronic pain, and arthritis who initially presented to the ER with overdose. She was subsequently admitted to the mental health unit. Patient seen and examined at bedside. She states for last 4 days she's had increased her wheezing.She is also feeling short of breath with exertion. She reports a nonproductive cough. She feels as though her asthma is flared. She denies any fevers or chills. She denies any unusual nausea vomiting con stipation, diarrhea, or dysuria. She complains of chronic pain in her legs and into her back that makes it difficulty to ambulate along with chronic numbness and tingling. She also reports recent insomnia. She typically takes her to wear a inhaler twice daily as well as as needed albuterol. She has not been on any recent steroids or antibiotics. She has never required hospitalization for her asthma. Review of Systems Pertinent positives and negatives as discussed in HPI, a complete review of systems was performed and all other systems are negative. Past Medical History Past Medical History: COPD, Osteoarthritis (OA) Additional Past Medical History / Comment(s): CHRONIC BACK PAIN, ABDOMINAL PAIN, CONSTIPATION, fibromyalgia History of Any Multi-Drug Resistant Organisms: None Reported Past Surgical History: Back Surgery, Cholecystectomy, Orthopedic Surgery Additional Past Surgical History / Comment(s): IMTIAZ KNEE ARTHROSCOPY, HEMATOMA REMOVED RT FOOT,NOVASURE ABLATION, left elbow surgery for ulnar tunnel release, back surgery 2 with rods in a cage, cervical spinal surgery with fusion Past Anesthesia/Blood Transfusion Reactions: No Reported Reaction Smoking Status: Current every day smoker Past Alcohol Use History: None Reported Past Drug Use History: None Reported - Past Family History Mother Family Medical History: Deep Vein Thrombosis (DVT), Pulmonary Embolus Medications and Allergies Home Medications Medication Instructions Recorded Confirmed Type Pregabalin [Lyrica] 200 mg PO BID 03/29/15 04/11/19 History Albuterol Inhaler [Ventolin Hfa 2 puff INHALATION RT-QID PRN 07/03/18 04/11/19 History Inhaler] Mometasone/Formoterol [Dulera 200 2 puff INHALATION RT-BID PRN 07/03/18 04/11/19 History Mcg/5 Mcg Inhaler] traMADol HCL [Ultram] 50 mg PO Q12HR PRN 3 Days #12 tab 07/03/18 04/11/19 Rx Allergies Allergy/AdvReac Type Severity Reaction Status Date / Time cephalexin monohydrate Allergy Swelling Verified 04/11/19 03:17 [From Keflex] pramipexole di-HCl AdvReac Nausea & Verified 04/11/19 03:17 [From Mirapex] Vomiting Physical Exam Osteopathic Statement: *. No significant issues noted on an osteopathic structural exam other than those noted in the History and Physical/Consult. Vitals: Vital Signs Temp Pulse Pulse Resp BP BP Pulse Ox 04/11/19 04:07 97.3 F L 65 16 121/78 95 04/11/19 01:00 65 149/102 97 04/11/19 00:19 80 150/96 97 04/11/19 00:00 18 138/83 98 04/10/19 23:30 56 L 20 141/82 99 04/10/19 23:00 50 L 20 100 04/10/19 22:30 49 L 19 137/81 95 04/10/19 22:00 51 L 18 150/88 98 04/10/19 21:13 57 L 24 150/88 94 L 04/10/19 21:06 98.2 F 54 L 19 150/88 96 General: non toxic, no distress, appears at stated age, obese Derm: no unusual rashes/lesions no unusual ecchymoses, warm, dry Head: atraumatic, normocephalic, symmetric Eyes: EOMI, no lid lag, anicteric sclera, pupils equal round reactive to light ENT: Nose and ears atraumatic, no thrush, no pharyngeal erythema Neck: No thyromegaly, no cervical lymphadenopathy, trachea midline, supple Mouth: no lip lesion, mucus membranes moist Cardiovascular: S1S2 reg, no murmur, positive posterior tibial pulse bilateral, no edema, capillary refill less than 2 seconds Lungs: Wheeze bilateral, no rhonchi, no rales , no accessory muscle use Abdominal: soft, nontender to palpation, no guarding, no appreciable organomegaly, normal bowel sounds Ext: no gross muscle atrophy, muscle strength 5 out of 5 in all 4 extremities grossly, no contractures, Neuro: CN II-XI grossly intact, light touch intact all 4 extremities, finger to nose within normal limits, Psych: Alert, oriented, appropriate affect Cranial Nerve Examination - Cranial Nerves Cranial Nerve II- Optic: Intact Cranial Nerve III- Oculomotor: Intact Cranial Nerve IV- Trochlear: Intact Cranial Nerve V- Trigeminal: Intact Cranial Nerve - Abducens: Intact Cranial Nerve VII- Facial: Intact Cranial Nerve VIII- Auditory: Intact Cranial Nerve IX- Glossopharyngeal: Intact Cranial Nerve X- Vagus: Intact Cranial Nerve XI- Accessory: Intact Cranial Nerve XII- Hypoglossal: Intact Results CBC & Chem 7: 04/10/19 21:18 04/10/19 21:18 Labs: Abnormal Lab Results - Last 24 Hours (Table) 04/10/19 04/10/19 04/10/19 Range/Units 21:18 21:18 21:18 WBC 11.3 H (3.8-10.6) k/uL Hct 47.4 H (34.0-46.0) % BUN 4 L (7-17) mg/dL Glucose 133 H (74-99) mg/dL POC Glucose (mg/dL) (75-99) mg/dL Creatine Kinase 23 L (30-135) U/L Total Protein 5.9 L (6.3-8.2) g/dL Triglycerides (<150) mg/dL LDL Cholesterol, Calc (0-99) mg/dL HDL Cholesterol (40-60) mg/dL Urine Appearance Turbid H (Clear) Urine Protein 2+ H (Negative) Urine Blood Trace H (Negative) Ur Leukocyte Esterase Moderate H (Negative) Urine WBC 10 H (0-5) /hpf Ur Squamous Epith Cells 59 H (0-4) /hpf Amorphous Sediment Rare H (None) /hpf Urine Bacteria Moderate H (None) /hpf Urine Mucus Many H (None) /hpf 04/10/19 04/10/19 Range/Units 21:18 21:19 WBC (3.8-10.6) k/uL Hct (34.0-46.0) % BUN (7-17) mg/dL Glucose (74-99) mg/dL POC Glucose (mg/dL) 136 H (75-99) mg/dL Creatine Kinase (30-135) U/L Total Protein (6.3-8.2) g/dL Triglycerides 251 H (<150) mg/dL LDL Cholesterol, Calc 100 H (0-99) mg/dL HDL Cholesterol 30 L (40-60) mg/dL Urine Appearance (Clear) Urine Protein (Negative) Urine Blood (Negative) Ur Leukocyte Esterase (Negative) Urine WBC (0-5) /hpf Ur Squamous Epith Cells (0-4) /hpf Amorphous Sediment (None) /hpf Urine Bacteria (None) /hpf Urine Mucus (None) /hpf Thrombosis Risk Factor Assmnt - DVT/VTE Prophylaxis DVT/VTE Prophylaxis: Low risk, early ambulation encouraged - Choose All That Apply Each Factor Represents 1 point: Obesity (BMI >25) Other Risk Factors: No Other congenital or acquired thrombophilia - If yes, enter type in comment: No Thrombosis Risk Factor Assessment Total Risk Factor Score: 1 Thrombosis Risk Factor Assessment Level: Low Risk Assessment and Plan Assessment: Acute exacerbation of asthma with suspected viral bronchitis -Prednisone 20 mg 5 days -Scheduled DuoNeb's, when necessary albuterol, and resumed to wear a -No indication for antibiotic at this time as cough is nonproductive and patient is afebrile Fibromyalgia, arthritis -On Cymbalta -Resume lyrica -We will leave Ultram to the discretion of psychiatry Obesity with BMI 35.6 -Outpatient structured weight loss Depression - your psych management Thank you for allowing us to participate in the care of this patient. We will follow peripherally. Do not hesitate to contact us with questions. Someone can be reached from the [facility] hospitalist group at all hours of the day at [phone].
[2019-04-11] MEDS: predniSONE 20 MG TAB PO SCH (17:40)
[2019-04-11] MEDS: IPRATROPIUM-ALBUTEROL 3 ML NEB INHALATION SCH ×2 (18:13→21:23)
[2019-04-11] MEDS: SYMBICORT 160-4.5 MCG INHALER INHALATION SCH (21:23)
[2019-04-11] MEDS: PREGABALIN 100 MG CAP PO SCH (22:03)
[2019-04-11] MEDS: LORazepam 1 MG TAB PO PRN (22:04)
[2019-04-12 03:39] VITALS: RESP 16
[2019-04-12] MEDS: LORazepam 1 MG TAB PO PRN ×2 (03:57→20:29)
[2019-04-12] MEDS: IPRATROPIUM-ALBUTEROL 3 ML NEB INHALATION SCH ×4 (07:59→20:39)
[2019-04-12] MEDS: SYMBICORT 160-4.5 MCG INHALER INHALATION SCH ×2 (07:59→16:11)
[2019-04-12] MEDS: DULoxetine HCL 30 MG CAPSULE.DR PO SCH (08:16)
[2019-04-12] MEDS: NICOTINE 14MG/24HR PATCH TRANSDERM SCH (08:16)
[2019-04-12] MEDS: predniSONE 20 MG TAB PO SCH (08:17)
[2019-04-12] MEDS: PREGABALIN 100 MG CAP PO SCH ×2 (08:17→20:28)
[2019-04-12] MEDS: ONDANSETRON ODT 4 MG TAB PO PRN ×2 (09:22→17:36)
[2019-04-12] MEDS: LOPERAMIDE 2 MG CAP PO PRN ×2 (09:23→16:22)
--- NOTE | 2019-04-12 11:11 | P.PN ---
Progress Note - Text Interval history: The patient is found in the [facility] she follows me to an interview room. She states her mood is improving. She reports attending groups and finding them helpful in terms of coping skill development. She states that she feels nauseous and is experiencing some diarrhea. She feels she may be withdrawing from the Ultram. She reports her mother gave her four of them to take prior to coming in the hospital. She states that she had 2 conversations with her and those went well. She has no questions or concerns regarding the Cymbalta. Mental status exam: The patient is an overweight female dressed in hospital gowns. Hygiene grooming adequate. Speech is fluent spontaneous nonpressured. She reports no acute suicidal ideation intent or plan. She is reporting no auditory or visual hallucinations or specific delusions. There is no observed evidence of psychosis. She does not appear hypomanic or manic. She demonstrates no verbal or physical aggressiveness. Insight and judgment improving. Affect is appropriately expressive. Plan: The patient appears to be clinically stabilizing. We will plan to titrate the Cymbalta 60 mg daily tomorrow. Social work has spoken with the patient's via phone. If the patient demonstrates sufficient clinical improvement we will consider discharging her tomorrow. She is encouraged to continue full participation in the milieu and we will continue monitoring her for safety.
[2019-04-13] MEDS: LORazepam 1 MG TAB PO PRN (05:34)
[2019-04-13 05:36] VITALS: BP 126/69; PULSE 129; TEMP 98.2
[2019-04-13] MEDS: ONDANSETRON ODT 4 MG TAB PO PRN (05:37)
[2019-04-13] MEDS: LOPERAMIDE 2 MG CAP PO PRN (05:39)
[2019-04-13] MEDS: DULoxetine HCL 30 MG CAPSULE.DR PO SCH (07:17)
--- NOTE | 2019-04-13 08:56 | P.DS ---
Providers Date of admission: 04/11/19 02:31 Expected date of discharge: 04/13/19 Attending physician: Glenn Horton Consults: 04/11/19 02:41 Consult Physician Routine Consulting Provider: Rahul Physician Consult Reason/Comments: H and P medical Do you want consulting provider notified?: Yes, Notify in am Primary care physician: [facility] Diagnosis(es) (1) Major depressive disorder Current Visit: Yes Status: Acute Priority: High (2) Panic attacks Current Visit: Yes Status: Acute Priority: Medium Hospital Course: Brief summary of admission note: This patient is a 34-year-old female who was admitted to the mental health unit after an overdose with Ambien and clonidine. She had taken approximately a total of 20 pills as she felt overwhelmed with physical pain and recent stressors. She states it wasn't her original intent to when she overdosed. She described more recent panic attacks. For full details please refer to my psychiatric evaluation dated 04/11/2019. Summary of hospital course: The patient was admitted to the mental health unit voluntarily. We reviewed her presenting symptoms and treatment options. We decided to initiate Cymbalta for depression and anxiety and possibly pain related symptoms. The patient was seen by internal medicine for routine history and physical exam. Social work met with the patient to complete a psychosocial assessment and for discharge planning purposes. Social work conducted a support meeting via phone with the patient's as he reported he was unable to attend in person. The patient attended group she was pleasant and cooperative and easily directed. She reported a resolution of her acute symptoms during the hospitalization. While in the hospital she reported no suicidal ideation intent or plan. She is amenable to continuing the Cymbalta as well as working with an outpatient therapist. Mental status exam: The patient is an overweight female she is dressed in hospital gowns hygiene grooming adequate. Speech is fluent spontaneous nonpressured she denies having any suicidal ideation intent or plan and she reports no homicidal ideation intent or plan. He reports no auditory or visual hallucinations or specific delusions. There is no observed evidence of psychosis. She demonstrates no tangential thinking loose associations or flight of ideas. She demonstrates no verbal or physical aggressiveness she demonstrates no involuntary repetitive movements. Affect is appropriately expressive and appears euthymic. Mood is reported as "good". She remains oriented to person place and date. Impressions 1. Major depressive disorder recurrent, panic attacks Plan: The patient will be discharged home today. She will continue on Cymbalta and the dosage will be titrated to 60 mg daily. Social work will arrange outpatient mental health follow-up. At this time there is no imminent safety risk and she is appropriate for transition to outpatient care. She is instructed to return to the hospital with any acute safety concerns. The patient was offered a prescription for nicotine patches. She states she will not use them and asked that they not be prescribed. Patient Condition at Discharge: Stable Plan - Discharge Summary Discharge Rx Participant: No New Discharge Prescriptions: New DULoxetine HCL [Cymbalta] 60 mg PO DAILY #30 cap Continue Pregabalin [Lyrica] 200 mg PO BID Albuterol Inhaler [Ventolin Hfa Inhaler] 2 puff INHALATION RT-QID PRN PRN Reason: Shortness Of Breath Mometasone/Formoterol [Dulera 200 Mcg/5 Mcg Inhaler] 2 puff INHALATION RT-BID PRN PRN Reason: Shortness Of Breath Discontinued traMADol HCL [Ultram] 50 mg PO Q12HR PRN 3 Days #12 tab PRN Reason: Pain Discharge Medication List Pregabalin [Lyrica] 200 mg PO BID 03/29/15 [History] Albuterol Inhaler [Ventolin Hfa Inhaler] 2 puff INHALATION RT-QID PRN 07/03/18 [History] Mometasone/Formoterol [Dulera 200 Mcg/5 Mcg Inhaler] 2 puff INHALATION RT-BID PRN 07/03/18 [History] DULoxetine HCL [Cymbalta] 60 mg PO DAILY #30 cap 04/13/19 [Rx] Follow up Appointment(s)/Referral(s): [facility] - 04/15/19 1:00 pm (Alisia Silveira ) [facility] [Primary Care Provider] - 1-2 days Activity/Diet/Wound Care/Special Instructions: Activity and diet as tolerated. No guns or weapons in the home. Take all medications as prescribed and attend all follow up appointments as scheduled. Refrain from alcohol and street drugs not prescribed by your physician. If in need of of medication refills, please go to your primary care physician or to your outpatient psychiatric provider. If in crisis please call .
[2019-04-13] MEDS: NICOTINE 14MG/24HR PATCH TRANSDERM SCH (09:00)
[2019-04-13] MEDS: PREGABALIN 100 MG CAP PO SCH (09:00)
[2019-04-13] MEDS: predniSONE 20 MG TAB PO SCH (09:00)
== END 2019-04-13 09:37 | disposition home or self-care (01) | DRG 885 ==
LOC: EC 21:04 → 3MHU 04-11 02:31
PROVIDERS: ADMIT Psychiatry & Neurology Psychiatry; ATTEND Psychiatry & Neurology Psychiatry
DX: F33.9 Major depressive disorder, recurrent, unspecified (principal); J45.901 Unspecified asthma with (acute) exacerbation; J44.0 Chronic obstructive pulmonary disease with (acute) lower respiratory infection; F17.210 Nicotine dependence, cigarettes, uncomplicated; J20.8 Acute bronchitis due to other specified organisms; E66.9 Obesity, unspecified; Z68.35 Body mass index [BMI] 35.0-35.9, adult; F41.0 Panic disorder [episodic paroxysmal anxiety]; M17.10 Unilateral primary osteoarthritis, unspecified knee; M79.7 Fibromyalgia; T42.6X2A Poisoning by other antiepileptic and sedative-hypnotic drugs, intentional self-harm, initial encounter; Z79.51 Long term (current) use of inhaled steroids; Z79.899 Other long term (current) drug therapy; G47.00 Insomnia, unspecified; G89.29 Other chronic pain; M54.9 Dorsalgia, unspecified; Z90.49 Acquired absence of other specified parts of digestive tract; Z88.1 Allergy status to other antibiotic agents; Z88.8 Allergy status to other drugs, medicaments and biological substances
CPT/HCPCS: 36415; 80053; 80061; 80306; 80320; 80329; 81001; 81025; 82550; 83036; 83520; 84443; 85025; 93005; 94640; 96360; 96361; 99285

== ENCOUNTER → 2019-05-20 | Outpatient (CLI) | payer OTHER | END | disposition home or self-care (01) | LOC: RADUSWWP 11:59 | PROVIDERS: ATTEND Family Medicine | DX: M25.572 Pain in left ankle and joints of left foot (principal); M25.571 Pain in right ankle and joints of right foot; M79.605 Pain in left leg; M79.604 Pain in right leg | CPT/HCPCS: 93922; 93923 ==

== ENCOUNTER → 2021-04-25 | Outpatient (CLI) | payer OTHER ==
--- NOTE | 2021-04-25 12:29 | US ---
EXAMINATION TYPE: US abdomen complete DATE OF EXAM: 04/25/2021 COMPARISON: NONE CLINICAL HISTORY: R10.84 Generalized abdominal pain,D47.3 Thrombocy. EXAM MEASUREMENTS: Liver Length: 14.4 centimeters Gallbladder Wall: Status post cholecystectomy. CBD: wnl cm Spleen: 10.6 cm Right Kidney: 12.9 x 4.6 x 4.3 cm Left Kidney: 12.7 x 6.0 x 5.3 cm Morbidly obese patient technically difficult limited study. Pancreas: The head and tail of the pancreas are not visualized due to overlying bowel gas. Liver: Increased attenuation, decreased visualization of vessels. These findings are suggestive of f atty infiltration. Gallbladder: Surgically absent CBD: wnl Spleen: wnl Right Kidney: Upper limits of normal in size. Left Kidney: Probable dromedary pump. Enlarged left kidney. Upper IVC: wnl Abd Aorta: Portions visualized wnl, distal aorta and bifurcation are obscured by overlying bowel gas and patient's large body habitus. IMPRESSION: 1. The study is limited due to patient's morbid obesity and overlying bowel gas. 2. The right kidney is at the upper limits of normal in size. The left kidney is mildly enlarged. No hydronephrosis or shadowing renal calculi. Probable dromedary hump of the left kidney. 3. Status post cholecystectomy. 4. Diffuse fatty infiltration of liver. 5. The distal aorta and head and tail of the pancreas are obscured by overlying bowel gas.
== END | disposition home or self-care (01) ==
LOC: RADUSWWP 09:23
PROVIDERS: ATTEND Internal Medicine Hematology & Oncology
DX: E66.01 Morbid (severe) obesity due to excess calories (principal); K76.0 Fatty (change of) liver, not elsewhere classified; Z90.49 Acquired absence of other specified parts of digestive tract
CPT/HCPCS: 76700

== ENCOUNTER → 2021-10-14 | Outpatient (CLI) | payer OTHER ==
[2021-10-14 14:43] VITALS: BP 140/86; PULSE 118; RESP 18; BMI 42.7
[2021-10-14 15:35] LABS: HCT 43.1 % (34.0-46.0); HGB 14.2 gm/dL (11.4-16.0); MCH 31.1 pg (25.0-35.0); MCHC 32.9 g/dL (31.0-37.0); MCV 94.7 fL (80.0-100.0); Mean Platelet Volume 7.7; Platelet Count 488 k/uL (150-450); RBC 4.55 m/uL (3.80-5.40); RDW 14.6 % (11.5-15.5); WBC 13.5 k/uL (3.8-10.6)
[2021-10-15 01:39] LABS: African American GFR (CKD) 128.3 (60.0-200.0); Albumin 4.6 g/dL (3.8-4.9); Albumin/Globulin Ratio 1.64 (1.60-3.17); Anion Gap 14.9 mmol/L (4.00-12.00); BUN/Creat Ratio 11.33 Ratio (12.00-20.00); Blood Urea Nitrogen 7.9 mg/dL (9.0-27.0); Calcium 9.8 mg/dL (8.7-10.3); Carbon Dioxide 19.9 mmol/L (21.6-31.8); Folate, Serum 5.7 ng/mL (4.40-31.00); Globulin 2.8 g/dL (1.6-3.3); Non-African American GFR(CKD) 110.7 (60.0-200.0); Potassium 4.5 mmol/L (3.5-5.5); Total Bilirubin 0.2 mg/dL (0.30-1.20); Total Protein 7.4 g/dL (6.2-8.2)
--- NOTE | 2021-10-15 12:42 | P.HPBAR ---
Bariatric H&P - History & Physicial H&P Date: 10/16/21 History & Physicial: Visit/CC: initial visit Patient initial contact: Initial weight: 125.645 kg Initial weight in pounds: 277.00 Height: 5 ft 7.5 in Initial BMI: 42.7 Last weight: Current weight: 125.645 kg Current weight in pounds: 277.00 Current BMI: 42.7 [place] body weight (based on NIH guidelines): 62.369 kg Excess body weight loss: 0.0% The patient is a 36 year-old F who presents for Bariatric Assessment. Patient resents today for presurgical consultation. She has had lifetime problems obesity. Her BMI is 43. She is interested in sleeve gastrectomy. The patient is an excellent understanding of sleeve yesterday. She understands the risks and benefits of the procedure. Past Medical History Past Medical History: COPD, Osteoarthritis (OA) Additional Past Medical History / Comment(s): CHRONIC BACK PAIN, ABDOMINAL PAIN, CONSTIPATION, fibromyalgia History of Any Multi-Drug Resistant Organisms: None Reported Past Surgical History: Back Surgery, Cholecystectomy, Orthopedic Surgery Additional Past Surgical History / Comment(s): IMTIAZ KNEE ARTHROSCOPY, HEMATOMA REMOVED RT FOOT,NOVASURE ABLATION, left elbow surgery for ulnar tunnel release, back surgery 2 with rods in a cage, cervical spinal surgery with fusion Past Anesthesia/Blood Transfusion Reactions: No Reported Reaction Past Psychological History: Anxiety, Depression Smoking Status: Former smoker, Second hand smoke exposure Past Alcohol Use History: None Reported Past Drug Use History: None Reported - Past Family History Mother Family Medical History: Deep Vein Thrombosis (DVT), Pulmonary Embolus Surgical - Exam Vital Signs Pulse Resp BP 118 H 18 140/86 10/14/21 14:38 10/14/21 14:38 10/14/21 14:38 - General well developed, well nourished, no distress - Eyes PERRL - ENT normal pinna - Neck no masses - Respiratory normal expansion - Cardiovascular Rhythm: regular - Abdomen Abdomen: soft, non tender Results - Labs 10/14/21 14:50 10/14/21 14:50 Abnormal Lab Results - Last 24 Hours (Table) 10/14/21 10/14/21 10/14/21 Range/Units 14:50 14:50 14:50 WBC 13.5 H (3.8-10.6) k/uL Plt Count 488 H (150-450) k/uL Carbon Dioxide 19.9 L (21.6-31.8) mmol/L Anion Gap 14.90 H (4.00-12.00) mmol/L BUN 7.9 L (9.0-27.0) mg/dL BUN/Creatinine Ratio 11.33 L (12.00-20.00) Ratio Hemoglobin A1c 6.1 H (4.0-6.0) % Total Bilirubin 0.20 L (0.30-1.20) mg/dL Vitamin B12 168.0 L (200.0-944.0) pg/mL Vitamin D 25-Hydroxy 22.1 L (30.0-100.0) ng/mL Diabetes panel 10/14/21 10/14/21 Range/Units 14:50 14:50 Sodium 138 (135-145) mmol/L Potassium 4.5 (3.5-5.5) mmol/L Chloride 103 (96-109) mmol/L Carbon Dioxide 19.9 L (21.6-31.8) mmol/L BUN 7.9 L (9.0-27.0) mg/dL Creatinine 0.7 (0.6-1.5) mg/dL Glucose 96 (70-110) mg/dL Hemoglobin A1c 6.1 H (4.0-6.0) % Calcium 9.8 (8.7-10.3) mg/dL AST 14 (13-35) U/L ALT 19 (8-44) U/L Alkaline Phosphatase 66 (41-126) U/L Total Protein 7.4 (6.2-8.2) g/dL Albumin 4.6 (3.8-4.9) g/dL Calcium panel 10/14/21 Range/Units 14:50 Calcium 9.8 (8.7-10.3) mg/dL Albumin 4.6 (3.8-4.9) g/dL Pituitary panel 10/14/21 Range/Units 14:50 Sodium 138 (135-145) mmol/L Potassium 4.5 (3.5-5.5) mmol/L Chloride 103 (96-109) mmol/L Carbon Dioxide 19.9 L (21.6-31.8) mmol/L BUN 7.9 L (9.0-27.0) mg/dL Creatinine 0.7 (0.6-1.5) mg/dL Glucose 96 (70-110) mg/dL Calcium 9.8 (8.7-10.3) mg/dL Adrenal panel 10/14/21 Range/Units 14:50 Sodium 138 (135-145) mmol/L Potassium 4.5 (3.5-5.5) mmol/L Chloride 103 (96-109) mmol/L Carbon Dioxide 19.9 L (21.6-31.8) mmol/L BUN 7.9 L (9.0-27.0) mg/dL Creatinine 0.7 (0.6-1.5) mg/dL Glucose 96 (70-110) mg/dL Calcium 9.8 (8.7-10.3) mg/dL Total Bilirubin 0.20 L (0.30-1.20) mg/dL AST 14 (13-35) U/L ALT 19 (8-44) U/L Alkaline Phosphatase 66 (41-126) U/L Total Protein 7.4 (6.2-8.2) g/dL Albumin 4.6 (3.8-4.9) g/dL Bariatric Assessment & Plan Plan: Morbid obesity. Patient was scheduled for EGD. All her questions were sleeve gastrectomy were answered. Bariatric Checklist Checklist: Plan: Checklist: EGD: 1. Hiatal hernia: 2. H. Pylori: HgbA1c: Vitamin D: Smoking: Current every day smoker Primary care physician referral: Dr. Ortiz Psychiatry clearance: Cardiology clearance: Sleep study: Diet journal: VTE risk score: VTE risk level: Rehab needs at discharge:
== END ==
LOC: BARWHC3 14:00
PROVIDERS: ATTEND Surgery
DX: E66.01 Morbid (severe) obesity due to excess calories (principal); J44.9 Chronic obstructive pulmonary disease, unspecified; M19.90 Unspecified osteoarthritis, unspecified site; F41.9 Anxiety disorder, unspecified; F32.9 Major depressive disorder, single episode, unspecified; Z87.891 Personal history of nicotine dependence; Z68.41 Body mass index [BMI] 40.0-44.9, adult; Z88.1 Allergy status to other antibiotic agents; Z88.8 Allergy status to other drugs, medicaments and biological substances
CPT/HCPCS: 84425; 80053; 82607; 82746; 85027; 82306; 83036; 93005; 36415; G0463; 99203

== ENCOUNTER → 2022-02-10 | Outpatient (CLI) | payer OTHER ==
[2022-02-10 22:37] LABS: Anion Gap 14.9 mmol/L (10.00-18.00); BUN/Creat Ratio 11.1 Ratio (12.00-20.00); Blood Urea Nitrogen 7.8 mg/dL (9.0-27.0); Calcium 9.9 mg/dL (8.7-10.3); Carbon Dioxide 20.1 mmol/L (20.0-27.5); Non-African American GFR(CKD) 109.6 (60.0-200.0); Potassium 4.5 mmol/L (3.5-5.5)
[2022-02-11 02:08] LABS: Basophils # (A) 0.07 X 10*3/uL (0.00-0.10); Basophils % (A) 0.6 %; Eosinophils # (A) 0.38 X 10*3/uL (0.04-0.35); HGB 14.4 g/dL (12.0-15.0); Immature Grans, Automated 0.6 %; Lymphocytes # (A) 2.09 X 10*3/uL (0.90-5.00); Lymphocytes % (A) 16.6 %; MCH 30.4 pg (27.0-32.0); MCV 94.9 fL (80.0-97.0); Mean Platelet Volume 10.4 fL (9.5-12.2); Monocytes # (A) 0.88 X 10*3/uL (0.20-1.00); NRBC Per 100 WBC 0 /100 WBCS (0.0-0.0); Neutrophils # (A) 9.09 X 10*3/uL (1.80-7.70); Neutrophils % (A) 72.2 %; Platelet Count 454 X 10*3/uL (140-440); RBC 4.74 X 10*6/uL (4.10-5.20); RDW 15.4 % (11.5-14.5); WBC 12.59 X 10*3/uL (4.50-10.00)
== END | disposition home or self-care (01) ==
LOC: LABPAT 14:33
PROVIDERS: ATTEND Orthopaedic Surgery Hand Surgery
DX: Z01.812 Encounter for preprocedural laboratory examination (principal); G56.01 Carpal tunnel syndrome, right upper limb; M65.4 Radial styloid tenosynovitis [de Quervain]
CPT/HCPCS: 80048; 85025; 93005

== ENCOUNTER 2022-02-12 08:52 | Day surgery (SDC) | payer OTHER ==
[2022-02-10 12:07] VITALS: BMI 43.0
--- NOTE | 2022-02-11 11:17 | P.HPOR ---
History of Present Illness H&P Date: 02/11/22 Chief Complaint: Right carpal tunnel syndrome, right DeQuervains Subjective: This is a 36 year old female that presents today for initial evaluation regarding bilateral hand numbness and right wrist soreness that has been present for 4-6 months. She has tried several injections with her Delivery Associate and only had temporary relief from the carpal tunnel injection and right wrist injection. She states her numbness is worse at night and is associated with the thumb, index and middle fingers mainly. She has tried splinting at night time with little relief. Physical Examination: RUE: AIN/PIN/Radial/Ulnar/Median motor intact. Radial/Ulnar/Median SILT. 2+/4 Radial/Ulnar pulses palpated. 5/5 APB, 5/5 FDI. Positive Finkelsteins, negative CMC grind, Positive Durkan's compression. LUE: AIN/PIN/Radial/Ulnar/Median motor intact. Radial/Ulnar/Median SILT. 2+/4 Radial/Ulnar pulses palpated. 5/5 APB, 5/5 FDI. negative Finkelsteins, negative CMC grind, Positive Durkan's compression. Imaging: X-Rays of the bilateral wrist demonstrate no acute osseus abnormality. Impression: 1.) Right Dequervains Tenosynovitis 2.) B/L Carpal tunnel syndrome. Plan: Diagnosis and treatment options were discussed with the patient. She has failed conservative treatment of her right wrist tendonitis and bilateral carpal tunnel syndrome and would like to pursue surgical intervention. She will be scheduled for a right first dorsal compartment release and right endoscopic/possible open carpal tunnel release. Risks and benefit of surgery including bleeding, infection, damage to surrounding tissue, need for further surgery, possible need to convert to open procedure, residual numbness were discussed and the patient wished to go forward with surgery. Pre op labs/ EKG will be ordered. -Hank Vincent DO Orthopedic Hand/Upper Extremity Surgeon Past Medical History Past Medical History: COPD, Fibromyalgia, Osteoarthritis (OA) Additional Past Medical History / Comment(s): CHRONIC BACK PAIN, ABDOMINAL PAIN, CONSTIPATION, fibromyalgia History of Any Multi-Drug Resistant Organisms: None Reported Past Surgical History: Back Surgery, Cholecystectomy, Orthopedic Surgery, Uterine Ablation Additional Past Surgical History / Comment(s): IMTIAZ KNEE ARTHROSCOPY, HEMATOMA REMOVED RT FOOT, left elbow surgery for ulnar tunnel release, back surgery 2 with rods in a cage, cervical spinal surgery with fusion Past Anesthesia/Blood Transfusion Reactions: No Reported Reaction Smoking Status: Former smoker, Second hand smoke exposure - Past Family History Mother Family Medical History: Deep Vein Thrombosis (DVT), Pulmonary Embolus Medications and Allergies Home Medications Medication Instructions Recorded Confirmed Type Pregabalin [Lyrica] 150 mg PO BID 03/29/15 02/10/22 History Albuterol Inhaler (Mhu) [Ventolin 2 puff INHALATION RT-QID PRN 07/03/18 02/10/22 History Hfa Inhaler (Mhu)] Allergies Allergy/AdvReac Type Severity Reaction Status Date / Time cephalexin monohydrate Allergy Swelling Verified 02/10/22 11:56 [From Keflex] pramipexole di-HCl AdvReac Nausea & Verified 02/10/22 11:56 [From Mirapex] Vomiting Physical Examination Osteopathic Statement: *. No significant issues noted on an osteopathic structural exam other than those noted in the History and Physical/Consult.
[~2022-02-12 08:52] MED LIST changes: -DEXAMETHASONE SOD PHOSPHATE 10 MG/ML 1 ML VIAL IV ONE; -HYDROmorphone 1 MG/ML 1 ML SYRINGE IVP PRN; -LACTATED RINGERS 1,000 ML IV SCH; -MIDAZOLAM 2 MG/2 ML VIAL IV PRN; -ONDANSETRON 4 MG/2 ML VIAL IVP ONE; -SCOPOLAMINE 1.5MG/72HR PATCH TRANSDERM ONE
[2022-02-12] MEDS ORDERED: LIDOCAINE 1% (10MG/ML) FOR IV START INTRADERMA PRN (09:12)
[2022-02-12] MEDS ORDERED: ONDANSETRON 4 MG/2 ML VIAL IVP ONE (09:12)
[2022-02-12] MEDS ORDERED: HYDROmorphone 0.5 MG/0.5 ML SYRINGE IVP PRN (09:12)
[2022-02-12] MEDS ORDERED: LACTATED RINGERS 1,000 ML IV SCH (09:12)
[2022-02-12 09:31] VITALS: TEMP 97.3
[2022-02-12] MEDS ORDERED: DEXAMETHASONE SOD PHOSPHATE 4 MG/ML 1 ML VIAL IV ONE (09:45)
[2022-02-12] MEDS ORDERED: PROPOFOL 10 MG/ML 20 ML VIAL IV ONE (10:08)
[2022-02-12] MEDS ORDERED: LIDOCAINE 1% INJ 10MG/ML (20 ML MDV) ONE (10:08)
[2022-02-12] MEDS ORDERED: fentaNYL (PF) 50 MCG/ML 2 ML AMP ONE (10:08)
[2022-02-12] MEDS ORDERED: MIDAZOLAM 2 MG/2 ML VIAL ONE (10:08)
[2022-02-12] MEDS ORDERED: BUPIVACAINE (PF) 0.5% 30 ML VIAL SQ ONE ×2 (10:20)
[2022-02-12] MEDS ORDERED: LIDOCAINE 1% INJ 10MG/ML (20 ML MDV) SQ ONE ×2 (10:20)
[2022-02-12 11:00] VITALS: RESP 18
[2022-02-12 11:28] VITALS: BP 137/67; PULSE 78
--- NOTE | 2022-02-13 11:19 | P.OP ---
Date of Procedure: 02/12/22 Preoperative Diagnosis: 1.) Right carpal tunnel syndrome 2.) Right DeQuervains tenosynovitis Postoperative Diagnosis: 1.) Right carpal tunnel syndrome 2.) Right DeQuervains tenosynovitis Procedure(s) Performed: 1.) Right endoscopic carpal tunnel release 2.) Right hand first dorsal extensor compartment release Anesthesia: MAC Surgeon: Hank Vincent Estimated Blood Loss (ml): 0 Pathology: none sent Condition: stable Disposition: PACU Description of Procedure: This is a 36 year old female who presents today for a right endoscopic carpal tunnel release and right first dorsal compartment release after having failed conservative treatment in the past. Risks and benefits of surgery were discussed with the patient including bleeding, damage to surrounding tissue, infection, need to convert to open procedure, need for further surgery as well as risks of anesthesia including pulmonary embolism and even and the patient wished to proceed with surgical intervention. The patients was seen in the pre-operative area by myself. Consent and H&P were completed and updated. The correct extremity was marked in the pre-operative area by myself and all other questions were answered. Operative Narrative: The patient was brought to the operating room by the department of anesthesia. They remained on the portable stretcher and a rolling hand table was brought to the side of the operative extremity. Pre-operative time out was performed indicating the correct patient, procedure and laterality. All in the room agreed. The patient was then drifted off to sleep by the department of anesthesia. MAC anesthesia was utilized and a 50:50 mixture of 1% Lidocaine and 0.5% bupivacaine was injected into the subcutaneous tissues of the palmar and radial skin, 15ccs total. A nonsterile tourniquet was then applied to the operative extremity and the right upper extremity was then prepped and draped in normal sterile fashion. The operative extremity was the exsanguinated with an esmarch bandage and the tourniquet was inflated to 250mmHg. 15 blade scalpel was utilized to make a transverse incision on the palmar skin just ulnar to the palmaris longus tendon at the level of the distal wrist crease. Ragnell retractor was then placed radially and blunt dissection was performed to reveal the distal forearm fascia. This was lifted with fine Agustin pick ups and Littler tenotomy scissors were then used to open the forearm fascia transversely and a double skin hook was then placed. Hamate finder was placed into the carpal tunnel and then sequential sized dilators were inserted followed by the synovial elevator to separate the flexor tenosynovium from the undersurface of the transverse carpal ligament and a washboard texture was felt. The Micro[employer] endoscopic carpal tunnel release system gun was the then inserted into the carpal tunnel hugging the deep portion of the transverse carpal ligament in line with the base of the ring finger. Transverse fibers of the ligament were directly visualized. Pressure was applied on the palm to reveal th e distal extent of the transverse carpal ligament. The blade was then deployed and the distal half of the transverse carpal ligament was released. The scope was then brought distal again and remaining transverse fibers were incised with the blade. The proximal half of the transverse carpal ligament was then divided and again the scope was advanced distal and remaining transverse fibers were incised with the blade. The radial and ulnar leaflets were directly visualized and mobile consistent with complete release. Tenotomy scissors were then utilized to release the remaining distal forearm fascia under direct visualization taking care to preserve the palmar cutaneous branch of the median nerve. 15 blade scalpel was used to make a horizontal skin incision centered over the first dorsal compartment of the right wrist. Blunt dissection was taken down to the proximal edge of the first dorsal compartment while taking care to identify and protect branches of the superficial radial sensory nerve. The first dorsal compartment was released in it entirety from proximal to distal. APL and EPB tendons were identified and no separate slip was identified and tendons were gliding smoothly and unrestricted. Skin closure was performed with interrupted 4-0 Monocryl suture followed by Mastisol and steri strips. Sterile dressing was applied consisting of adaptic, 4x4s, Webril, and an mendel bandage. Patient was then awoken by department of anesthesia and transferred to PACU in stable condition. -Hank Vincent DO Orthopedic Hand/Upper Extremity Surgeon
== END 2022-02-12 11:31 | disposition home or self-care (01) ==
LOC: EDSEX → OR 08:52 → MERGE 10:15 → OR 11:31
PROVIDERS: ATTEND Orthopaedic Surgery Hand Surgery
DX: G56.01 Carpal tunnel syndrome, right upper limb (principal); M65.4 Radial styloid tenosynovitis [de Quervain]; J44.9 Chronic obstructive pulmonary disease, unspecified; M79.7 Fibromyalgia; M19.90 Unspecified osteoarthritis, unspecified site; G89.29 Other chronic pain; M54.9 Dorsalgia, unspecified; F41.9 Anxiety disorder, unspecified; F32.A Depression, unspecified; K21.9 Gastro-esophageal reflux disease without esophagitis; Z97.2 Presence of dental prosthetic device (complete) (partial); Z98.890 Other specified postprocedural states; Z90.49 Acquired absence of other specified parts of digestive tract; Z98.1 Arthrodesis status; Z87.891 Personal history of nicotine dependence; Z77.22 Contact with and (suspected) exposure to environmental tobacco smoke (acute) (chronic); Z79.899 Other long term (current) drug therapy; Z88.1 Allergy status to other antibiotic agents; Z88.8 Allergy status to other drugs, medicaments and biological substances
CPT/HCPCS: 81025; 64721; 25000; J2250; J1100; J2405; J2001; J3010; J2704

== ENCOUNTER → 2022-12-19 | Outpatient (CLI) | payer OTHER | END | disposition home or self-care (01) | LOC: LABPAT 11:38 | PROVIDERS: ATTEND Orthopaedic Surgery | DX: Z01.812 Encounter for preprocedural laboratory examination (principal); M17.12 Unilateral primary osteoarthritis, left knee; Z22.322 Carrier or suspected carrier of Methicillin resistant Staphylococcus aureus | CPT/HCPCS: 87070 ==

== ENCOUNTER → 2023-11-12 | Outpatient (CLI) | payer OTHER ==
--- NOTE | 2023-12-29 13:08 | P.PCN ---
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 She has snoring, sleep fragmentation and chronic hypersomnia sleepiness. She is morbidly obese and she carries a body mass index of 43.2. A home sleep study was ordered to evaluate this patient for obstructive sleep apnea Technical description The [employer] apnea link system was used to complete this home sleep study. This is a type III home sleep study. The total recording duration was 6058 minutes. The study started at 12:24 AM, and the study was completed at 7:23 AM. There was more than 6 hours of flow and oxygen saturation evaluation during the study and this is considered to be an adequate study Results Respiratory analysis showed a total of 88 obstructive hypopneas, no obstructive apneas. The patient's AHI was 7.0 consistent with mild obstructive sleep apnea Oxygen saturation analysis The patient's baseline pulse ox was 95% while awake. Average pulse ox during sleep was 91%. Lowest pulse ox was 76% and the patient spent approximately 28 minutes of the sleep time at the pulse ox of 89% and below Cardiac analysis Average heart rate was 90, minimum heart rate was 75 and the maximum heart rate was 123 Assessment Obstructive sleep apnea mild in severity with an AHI of 10. Mild nocturnal oxygen desaturation second obstructive sleep apnea Chronic hypersomnia sleepiness secondary to obstructive sleep apnea Obesity with a BMI of 43.2 [employer] truck driver Plan The patient will need CPAP therapy. I am going to offer her an APAP machine pressures of 5/15 cm of water. She is a mouth breather and the patient will be given an AirFit F20 fullface mask. The patient will see back in 30 to 90 days to assess her compliancy and following that if compliant she will be given napoleon johnson to obtain a DOT certification. The patient is in agreement with the treatment plan. The patient will like to proceed with CPAP therapy. Appropriate order will be given to the local DME to proceed with CPAP therapy.
== END ==
LOC: 3 N SLEEP 16:24
PROVIDERS: ATTEND Internal Medicine Critical Care Medicine
DX: G47.10 Hypersomnia, unspecified (principal); G47.33 Obstructive sleep apnea (adult) (pediatric); E66.9 Obesity, unspecified; F17.200 Nicotine dependence, unspecified, uncomplicated; Z68.41 Body mass index [BMI] 40.0-44.9, adult; Z91.040 Latex allergy status; Z88.1 Allergy status to other antibiotic agents; Z91.048 Other nonmedicinal substance allergy status; Z79.82 Long term (current) use of aspirin